=== PATIENT | female | born 1960 | race Caucasian/White ===

== ENCOUNTER 2021-06-23 23:07 | Inpatient (IN) | payer OTHER ==
[~2021-06-23] VITALS: Ht 162.6 cm; Wt 124.7 kg
[2021-06-24 00:40] LABS: HEMOGLOBIN 11.4 gm/dl (12.3-15.3); RED BLOOD COUNT 3.78 M/UL (4.00-5.10); WHITE BLOOD COUNT 5.8 K/UL (4.5-11.0)
[2021-06-24 01:03] LABS: BUN/CREATININE RATIO 38 (0-10)
[2021-06-24] MEDS ORDERED: LORAZEPAM2 MG PO (14:36)
[2021-06-24] MEDS ORDERED: PHENOBARBITAL60 MG PO (14:37)
[2021-06-24] MEDS ORDERED: HYDROCODON-ACE1 EAC6 PO (14:38)
[2021-06-24] MEDS ORDERED: GABAPENTIN300 MG PO (14:38)
[2021-06-24] MEDS ORDERED: PROAIR DIGIHAL90 MCG INH (14:39)
[2021-06-24] MEDS ORDERED: METHOCARBAMOL500 MG PO (14:40)
[2021-06-24] MEDS ORDERED: ALBUTEROL0.63 MG/3 NEB (14:41)
[2021-06-24] MEDS ORDERED: ASPIRIN EC81 MG PO (14:41)
[2021-06-24] MEDS ORDERED: TEGRETOL 200 M200 MG PO (14:42)
[2021-06-24] MEDS ORDERED: ADVAIR 500-501 EACH INH (14:43)
[2021-06-24] MEDS ORDERED: ZYRTEC10 MG PO (14:43)
[2021-06-24] MEDS ORDERED: FUROSEMIDE40 MG PO (14:44)
[2021-06-24] MEDS ORDERED: GLIPIZIDE ER10 MG PO (14:45)
[2021-06-24] MEDS ORDERED: GEMFIBROZIL600 MG PO (14:45)
[2021-06-24] MEDS ORDERED: HYDROXYZINE HCL25 MG PO (14:46)
[2021-06-24] MEDS ORDERED: COMBIVENT RESPIM4 GM INH (14:47)
[2021-06-24] MEDS ORDERED: LEVETIRACETAM1000 MG PO (14:48)
[2021-06-24] MEDS ORDERED: ISOSORBIDE MONO30 MG PO (14:48)
[2021-06-24] MEDS ORDERED: MONTELUKAST SOD10 MG PO (14:49)
[2021-06-24] MEDS ORDERED: METFORMIN HCL500 MG PO (14:49)
[2021-06-24] MEDS ORDERED: OMEPRAZOLE20 MG PO (14:50)
[2021-06-24] MEDS ORDERED: TRIAMTERENE-HC1 EAC3 PO (14:51)
[2021-06-24] MEDS ORDERED: LOPERAMIDE2 MG PO (14:52)
[2021-06-24] MEDS ORDERED: NITROSTAT 0.40.4 MG SL (14:53)
[2021-06-24] MEDS ORDERED: PROMETHAZINE12.5 M1 PO (14:54)
[2021-06-24 16:38] LABS: BUN/CREATININE RATIO 33 (0-10)
[2021-06-25 03:09] LABS: HEMOGLOBIN 10.9 gm/dl (12.3-15.3); RED BLOOD COUNT 3.68 M/UL (4.00-5.10); WHITE BLOOD COUNT 5.6 K/UL (4.5-11.0)
[2021-06-25 03:29] LABS: BUN/CREATININE RATIO 25 (0-10)
[2021-06-25 13:10] LABS: BUN/CREATININE RATIO 28 (0-10)
[2021-06-26 05:38] LABS: BUN/CREATININE RATIO 23 (0-10)
[2021-06-27 04:22] LABS: BUN/CREATININE RATIO 29 (0-10)
[2021-06-28 03:43] LABS: BUN/CREATININE RATIO 29 (0-10)
--- NOTE | 2021-06-28 14:13 | NUR ---
NO CHANGE FROM PREVIOUS ASSESSMENT
[2021-06-30 03:21] LABS: HEMOGLOBIN 9.9 gm/dl (12.3-15.3); RED BLOOD COUNT 3.24 M/UL (4.00-5.10)
[2021-06-30 04:07] LABS: BUN/CREATININE RATIO 31 (0-10)
[2021-07-01 09:36] LABS: HEMOGLOBIN 10.5 gm/dl (12.3-15.3); WHITE BLOOD COUNT 6.1 K/UL (4.5-11.0)
[2021-07-01 09:37] LABS: RED BLOOD COUNT 3.57 M/UL (4.00-5.10)
[2021-07-01 11:05] LABS: BUN/CREATININE RATIO 25 (0-10)
[2021-07-02 05:48] LABS: HEMOGLOBIN 9.5 gm/dl (12.3-15.3)
[2021-07-02 05:52] LABS: RED BLOOD COUNT 3.21 M/UL (4.00-5.10); WHITE BLOOD COUNT 3.8 K/UL (4.5-11.0)
[2021-07-02 06:13] LABS: BUN/CREATININE RATIO 21 (0-10)
[2021-07-03 02:58] LABS: HEMOGLOBIN 8.9 gm/dl (12.3-15.3); RED BLOOD COUNT 2.95 M/UL (4.00-5.10)
[2021-07-03 03:27] LABS: BUN/CREATININE RATIO 20 (0-10)
[2021-07-04 04:01] LABS: HEMOGLOBIN 9.4 gm/dl (12.3-15.3); RED BLOOD COUNT 3.14 M/UL (4.00-5.10); WHITE BLOOD COUNT 3.5 K/UL (4.5-11.0)
[2021-07-04 04:24] LABS: BUN/CREATININE RATIO 19 (0-10)
[2021-07-05 06:30] LABS: HEMOGLOBIN 9.6 gm/dl (12.3-15.3); RED BLOOD COUNT 3.15 M/UL (4.00-5.10); WHITE BLOOD COUNT 4.2 K/UL (4.5-11.0)
[2021-07-05 06:53] LABS: BUN/CREATININE RATIO 25 (0-10)
[2021-07-06 03:20] LABS: HEMOGLOBIN 9.6 gm/dl (12.3-15.3); RED BLOOD COUNT 3.22 M/UL (4.00-5.10); WHITE BLOOD COUNT 4.8 K/UL (4.5-11.0)
[2021-07-06 03:40] LABS: BUN/CREATININE RATIO 26 (0-10)
[2021-07-07 03:11] LABS: HEMOGLOBIN 9.4 gm/dl (12.3-15.3); RED BLOOD COUNT 3.16 M/UL (4.00-5.10); WHITE BLOOD COUNT 4.7 K/UL (4.5-11.0)
[2021-07-07 03:51] LABS: BUN/CREATININE RATIO 34 (0-10)
[2021-07-07] MEDS ORDERED: HYDROCODON-ACE1 EAC6 PO (12:40)
[2021-07-07] MEDS ORDERED: XIFAXAN 550 MG550 MG PO (12:40)
[2021-07-07] MEDS ORDERED: GABAPENTIN300 MG PO (12:40)
[2021-07-07] MEDS ORDERED: CHRONULAC20 GM/30 M PO (12:40)
--- NOTE | 2021-07-07 13:23 | NUR ---
REPORT GIVEN TO MELISSA MASTERS ON MED SURG 4
[2021-07-08 04:49] LABS: HEMOGLOBIN 9.1 gm/dl (12.3-15.3); RED BLOOD COUNT 3.03 M/UL (4.00-5.10); WHITE BLOOD COUNT 4.7 K/UL (4.5-11.0)
[2021-07-08 04:51] LABS: BUN/CREATININE RATIO 37 (0-10)
== END 2021-07-08 14:05 | DRG 441 ==
LOC: ER1 23:07 → CDU 06-24 05:56 → PROG CARE 06-24 05:56 → MED SURG 4 07-07 13:43
PROVIDERS: Internal Medicine; Physician Assistant; ADMIT Internal Medicine
DX: K72.00 Acute and subacute hepatic failure without coma (principal); G93.41 Metabolic encephalopathy; S52.612A Displaced fracture of left ulna styloid process, initial encounter for closed fracture; E72.20 Disorder of urea cycle metabolism, unspecified; F11.20 Opioid dependence, uncomplicated; Z20.822 Contact with and (suspected) exposure to COVID-19; E83.42 Hypomagnesemia; J44.9 Chronic obstructive pulmonary disease, unspecified; E83.39 Other disorders of phosphorus metabolism; W18.39XA Other fall on same level, initial encounter; M19.022 Primary osteoarthritis, left elbow; E11.9 Type 2 diabetes mellitus without complications; E78.5 Hyperlipidemia, unspecified; F41.9 Anxiety disorder, unspecified; I10 Essential (primary) hypertension; E66.01 Morbid (severe) obesity due to excess calories; R53.81 Other malaise; D63.1 Anemia in chronic kidney disease; R19.7 Diarrhea, unspecified; G40.909 Epilepsy, unspecified, not intractable, without status epilepticus; E87.6 Hypokalemia; Z79.82 Long term (current) use of aspirin; Z88.6 Allergy status to analgesic agent; Z88.1 Allergy status to other antibiotic agents; Z88.5 Allergy status to narcotic agent; Z91.010 Allergy to peanuts; Z88.0 Allergy status to penicillin; Z91.013 Allergy to seafood; Z88.2 Allergy status to sulfonamides; Z88.8 Allergy status to other drugs, medicaments and biological substances; Z91.018 Allergy to other foods; Z91.81 History of falling; Z68.38 Body mass index [BMI] 38.0-38.9, adult
CPT/HCPCS: 0240U; 36415; 36600; 70450; 71045; 73080; 73090; 73110; 76705; 80048; 80053; 80307; 81001; 82140; 82270; 82607; 82728; 82746; 82803; 82962; 83540; 83550; 83605; 83735; 83880; 84100; 84132; 85025; 85027; 85045; 85610; 85652; 85730; 86140; 87040; 87086; 93005; 94640; 94664; 94760; 96365; 96366; 96372; 96375; 97110; 97116; 97116-GP-CQ; 97162; 97166; 97530; 97530-GP-CQ; 99285; J0692; J1644; J3370; J3475; J3480; J3486; J7030; U0002